=== PATIENT | male | born 1955 | race Caucasian/White ===

== ENCOUNTER 2025-04-23 15:52 | Outpatient (CLI) | payer MEDICARE, SELFPAY ==
--- NOTE | ~2025-04-23 | MR_ITS ---
MRI of the left knee Clinical history: Pain Technique: Coronal proton density and proton density-weighted images, sagittal proton-density and T2 fat-sat images, and axial proton-density fat-saturated images were acquired. Findings: Anterior and posterior cruciate ligaments are intact. Medial collateral ligament and the la teral collateral ligament complex are intact. Popliteus tendon is intact. No medial meniscal tear seen. There is probable complex tearing extensively involving the entirety of the lateral meniscus, especially body segment. There is moderate chondral malacia at the patellar apex. There is focal high-grade chondral malacia t he inferior aspect of the femoral trochlea. There is patchy mild chondromalacia of the medial compart ment. 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 Extensor mechanism is intact. Moderate joint effusion present. No Laughlin's cyst. Impression: Extensive complex tearing of the lateral meniscus. Moderate joint effusion. Degenerative changes, as above. Reviewed, dictated and finalized at location . Impression: Extensive complex tearing of the lateral meniscus. Moderate joint effusion. Degenerative changes, as above.
== END 2025-04-23 15:53 | disposition home or self-care (01) ==
LOC: MICIMG 15:54
PROVIDERS: PCP Orthopaedic Surgery
DX: S83.272A Complex tear of lateral meniscus, current injury, left knee, initial encounter (principal); M25.462 Effusion, left knee; M17.12 Unilateral primary osteoarthritis, left knee; X58.XXXA Exposure to other specified factors, initial encounter
CPT/HCPCS: 73721